=== PATIENT | female | born 1940 | race Caucasian/White ===

== ENCOUNTER → 2016-06-19 | Outpatient (CLI) | payer MEDICARE ==
[~2016-06-19] MED LIST: CENTTAB47 PO; CHEW500C2 PO; EPIN0.052 OP; IMUR50TA PO; LIDOCAINE 1% MDV 20ML VIAL As Ordered ONE; LOSA100T36 PO; LUTECAP2 PO; METF-415 PO; METF500T PO; POTA10CA32 PO; VITA400C29 PO
--- NOTE | 2016-06-19 14:27 | REP ---
SPECIMEN RADIOGRAPHY LEFT BREAST: HISTORY: Stereotactic needle biopsy performed for microcalcifications. Comparison mammography June 05 and May 31, 2016. FINDINGS: Specimen radiograph demonstrates multiple microcalcifications from the target grouping in two of the removed specimens. IMPRESSION: Specimen radiography shows microcalcifications from the target specimen. Signed by Jona Kathleen MD 06/19/2016 02:49 P
--- NOTE | 2016-06-19 14:44 | REP ---
DIGITAL DIAGNOSTIC UNILATERAL LEFT BREAST MAMMOGRAPHY: Two views. HISTORY: Marker clip placement views post stereotactic needle biopsy left breast for upper outer quadrant microcalcifications. COMPARISON MAMMOGRAPHY: June 05 and May 31, 2016 prior studies. FINDINGS: Craniocaudad and mediolateral views of the left breast demonstrate marker clip in good position at the anterior edge of the microcalcific grouping. There are multiple microcalcifications remaining. Marker clip is in good position. No significant hematoma seen. IMPRESSION: Marker clip is in good position. Signed by Jona Kathleen MD 06/19/2016 02:49 P
--- NOTE | 2016-06-19 18:42 | REP ---
STEREOTACTIC LEFT BREAST BIOPSY: The procedure was performed under the direct supervision of Dr. Kathleen. The patient has a history of a pleomorphic cluster and grouping of microcalcifications at about the 1:30 position of the left breast seen on a previous mammogram from [facility] performed on 06/05/2016. The risks and benefits of the procedure were explained to the patient and informed consent was obtained. A cranial caudal approach was utilized. The calcifications were localized using stereotactic mammographic guidance. The skin was prepped and draped in a sterile fashion 1% Lidocaine was used as a local anesthetic. A 10-gauge suction assisted Mammotome needle was inserted and 6 core biopsy samples were obtained. Specimen radiograph demonstrates the presence of calcifications to be within the specimen. A marker clip was placed at the biopsy site. The patient tolerated the procedure well and there were no immediate complications. After the appropriate amount of monitored convalescence the patient was discharged from the department. Reviewed by JAIME Fall 06/20/2016 04:04 PEdited and Signed by Jona Kathleen MD 06/20/2016 05:02 P
== END ==
LOC: M RADPRO 10:49
PROVIDERS: ATTEND Internal Medicine
DX: C50.912 Malignant neoplasm of unspecified site of left female breast (principal)

== ENCOUNTER → 2016-08-06 | Outpatient (REF) | payer MEDICARE ==
[~2016-08-06] MED LIST changes: -LIDOCAINE 1% MDV 20ML VIAL As Ordered ONE
[2016-08-06 17:17] LABS: INR 0.93
== END ==
LOC: M LAB REF 16:11
PROVIDERS: ATTEND Internal Medicine
DX: Z01.812 Encounter for preprocedural laboratory examination (principal); K75.4 Autoimmune hepatitis

== ENCOUNTER → 2016-09-12 | Outpatient (CLI) | payer MEDICARE ==
--- NOTE | 2016-09-13 08:34 | RADONC ---
RADIATION ONCOLOGY CONSULTATION NOTE: DATE: 09/12/2016 CHART NUMBER: [id number]. DIAGNOSIS: Breast cancer. 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 HISTORY OF PRESENT ILLNESS: The patient is well-known to us and was originally seen in 2000. At that time, she had a 1.8 cm carcinoma of the left breast. She underwent lumpectomy and sentinel lymph node biopsy. This was followed by chemotherapy consisting of Adriamycin and Cytoxan, followed by external beam radiation therapy to the left breast for a dose of 4860 cGy the entire left breast with an additional 1200 cGy of the primary site bringing the primary site to total dose of 6060 cGy. Radiation was delivered from 07/01/2001 through 08/17/2001. The patient has been followed for many years and is well-known to our department. Apparently, routine mammogram was undertaken recently and a small area was seen in the upper outer quadrant of the left breast. The patient underwent lumpectomy with no node sampling by Dr. Mccord on 08/13/2016, and pathology revealed a 0.6 cm moderately differentiated invasive ductal carcinoma. The tumor was estrogen receptor and progesterone receptor positive and HER2 negative. She therefore, has a stage IA, [id number] carcinoma and is presenting to discuss her options. PAST MEDICAL HISTORY: The patient's past medical history is positive for previous breast cancer in 2000. It is also positive for hypertension, diabetes, arthritis and hepatitis. She had broken an ankle and had ankle surgery in the past, as well as a tonsillectomy. ALLERGIES: The patient is allergic to TYLENOL. SOCIAL HISTORY: The patient does not smoke cigarettes nor abuse alcohol. 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 FAMILY HISTORY: The patient's family history is positive for mother with breast cancer and a paternal uncle with colon cancer. REVIEW OF SYSTEMS: The patient's review of systems is noncontributory. Denies nausea, vomiting, fevers, chills, night sweats, diplopia, headaches, anxiety or depression, anorexia, weight loss, visual disturbances, chest pain, urinary or bowel difficulties, bone pain, or neurological problems. PHYSICAL EXAMINATION: The patient is a well-developed, well-nourished, 76-year-old female, in no acute distress. HEENT exam is normocephalic, atraumatic. Extraocular movements are intact. There is no palpable cervical, supraclavicular, infraclavicular, axillary, or inguinal lymphadenopathy present. Lungs are clear to auscultation and percussion. Heart has a regular rate and rhythm. Abdomen is benign with no hepatosplenomegaly, masses, or tenderness. Breast examination reveals no masses or discharge bilaterally. Skeletal examination reveals no tenderness to pressure or percussion of the bony skeleton. Extremities reveal no clubbing, cyanosis, or edema. Neurologic exam is grossly intact, as is the remainder of the physical examination. ASSESSMENT: I had a very lengthy discussion with this patient. We discussed the previous standard for a new breast cancer in a previously treated field, which would be mastectomy. We have discussed, however the NCCN guidelines for patients over 70 with small tumors, which are estrogen receptor and progesterone receptor positive and in which the patient agrees to undergo hormonal treatments. In those patients radiation can be omitted. Patients of course would need close followup. In light of the patient's age as well as her close compliance, I let her know that I agree with Dr. Mccord and Dr. Baldwin that it is quite reasonable to undergo hormonal therapy and follow her closely. She would of course need routine breast examinations as well as mammography. Should a recurrence happen at that time, she may wish to consider mastectomy. The patient at this time does not wish to undergo mastectomy. We discussed in detail any ramifications of these guidelines. We discussed the logic behind them. Once again, I agree with the expertise of Dr. Baldwin and Dr. Mccord. The NCCN guidelines clearly state in a patient with her tumor characteristics, age and overall outlook that it would be reasonable to follow her closely with hormonal therapy. Since she is being managed so closely under the expertise of Dr. Baldwin as well as Dr. Mccord, I have discharged her from my followup except on an as needed basis. I let her know that I am available to her at anytime. The patient has my cell phone number and work number if I could be of any assistance in the future. Thank you once again for allowing us to participate in the care of this very pleasant woman. If I could be of any further assistance, please feel free to contact me anytime. As always, warm regards. cc: MD Neno Andersen Jr, MD *Kara Kort, MD
== END ==
LOC: M ONCR 14:10
PROVIDERS: ATTEND Radiology Radiation Oncology
DX: C50.919 Malignant neoplasm of unspecified site of unspecified female breast (principal)

== ENCOUNTER → 2017-01-16 | Outpatient (REF) | payer MEDICARE ==
[~2017-01-16] MED LIST changes: -EPIN0.052 OP; +EPIN1DRO OP; -IMUR50TA PO; +IMUR50TA6 PO; -METF500T PO; +METF500T13 PO; +VITA-110 PO; -VITA400C29 PO
== END ==
LOC: M LAB REF 18:37
PROVIDERS: ATTEND Nurse Practitioner Adult Health
DX: E83.52 Hypercalcemia (principal)

== ENCOUNTER → 2017-01-27 | Outpatient (REF) | payer MEDICARE | LOC: M LAB REF 12:43 | PROVIDERS: ATTEND Nurse Practitioner Adult Health | DX: E83.52 Hypercalcemia (principal) ==

== ENCOUNTER → 2021-05-07 | Outpatient (CLI) | payer MEDICARE ==
[~2021-05-07] MED LIST changes: +CALC-362 PO; +CALCCAP4 PO; -CHEW500C2 PO; +CHLO125TA PO; +EXEM25TA PO; +IMUR50TA10 PO; -IMUR50TA6 PO; -LOSA100T36 PO; +LOSA100T45 PO; +LUTE15CA PO; +METO1TAB7 PO; +MULT-90 PO; +MULTCAP PO; +VITATAB74 PO
== END ==
LOC: M RAD 07:58
PROVIDERS: ATTEND Internal Medicine Gastroenterology
DX: K75.4 Autoimmune hepatitis (principal)

== ENCOUNTER → 2021-07-10 | Outpatient (CLI) | payer MEDICARE | LOC: M WHC 12:58 | PROVIDERS: ATTEND Internal Medicine Hematology & Oncology | DX: M85.851 Other specified disorders of bone density and structure, right thigh (principal); M85.852 Other specified disorders of bone density and structure, left thigh ==

== ENCOUNTER → 2022-07-11 | Outpatient (CLI) | payer MEDICARE, MEDICAID ==
[~2022-07-11] MED LIST changes: +AZEL0.05; -POTA10CA32 PO; +POTA10CA33 PO
== END ==
LOC: M WHC 06:37
PROVIDERS: ATTEND Internal Medicine Gastroenterology
DX: K75.4 Autoimmune hepatitis (principal); Q44.6 Cystic disease of liver

== ENCOUNTER → 2023-07-02 | Outpatient (CLI) | payer MEDICARE, MEDICAID ==
[~2023-07-02] MED LIST changes: +EPIN1DRO; +HYDR-3490; -LOSA100T45 PO; +LOSA100T46 PO; -POTA10CA33 PO; +POTA10CA60 PO; +SYST0.4D2 OP
== END ==
LOC: M RAD 06:36
PROVIDERS: ATTEND Internal Medicine Gastroenterology
DX: K75.4 Autoimmune hepatitis (principal)

== ENCOUNTER → 2023-07-14 | Outpatient (CLI) | payer MEDICARE, MEDICAID | LOC: M WHC 10:51 | PROVIDERS: ATTEND Internal Medicine Medical Oncology | DX: M81.0 Age-related osteoporosis without current pathological fracture (principal) ==

== ENCOUNTER → 2023-10-27 | Outpatient (REF) | payer MEDICARE, MEDICAID ==
[~2023-10-27] MED LIST changes: -POTA10CA60 PO; +POTA10CA70 PO
== END ==
LOC: M LAB REF 11:50
PROVIDERS: ATTEND Internal Medicine
DX: E83.52 Hypercalcemia (principal); N18.31 Chronic kidney disease, stage 3a

== ENCOUNTER → 2024-06-29 | Outpatient (CLI) | payer MEDICARE, MEDICAID ==
[~2024-06-29] MED LIST changes: +EPIN0.055; +EPIN0.055 OP; -EPIN1DRO; -EPIN1DRO OP
== END ==
LOC: M WHC 10:00
PROVIDERS: ATTEND Internal Medicine Gastroenterology
DX: K75.4 Autoimmune hepatitis (principal)